=== PATIENT | female | born 1970 | race Caucasian/White ===

== ENCOUNTER 2024-10-25 22:28 | Emergency (ER) | payer SELFPAY ==
[2024-10-25 22:39] VITALS: BMI 29.2
[2024-10-25] MEDS ORDERED: ACETAMINOPHEN INJECTION 100 ML ONE (22:53)
[2024-10-25] MEDS: ACETAMINOPHEN 1000 MG/100 ML BAG IVPB ONE (23:19)
[2024-10-25] MEDS: SODIUM CHLORIDE 1,000 ML IV STA (23:19)
[2024-10-25 23:37] LABS: ABSOLUTE IMMATURE GRANULOCYTES 0.03 x10^3/uL (0.0-0.031); BASOPHILS # 0.04 x10^3/uL (0.01-0.08); EOSINOPHIL % 2.6 % (0.7-5.8); EOSINOPHILS # 0.21 x10^3/uL (0.04-0.36); HEMATOCRIT 41.8 % (34.1-44.9); HEMOGLOBIN 14.5 g/dL (11.2-15.7); MCHC 34.7 g/dl (32.2-35.5); MEAN CELL VOLUME 92.1 fl (79.4-94.8); MEAN PLT VOLUME 9.8 fl (9.4-12.3); MONOCYTE # 0.54 x10^3/uL (0.24-0.86); MONOCYTE % 6.6 % (4.7-12.5); PLATELET COUNT 257 x10^3/uL (182-369); RDW 12.5 % (12.3-16.6)
[2024-10-25 23:48] LABS: INR 0.94 (0.83-1.09); PROTHROMBIN TIME (PATIENT) 10.3 SEC (9.7-13.0)
[2024-10-25] MEDS ORDERED: DICYCLOMINE HCL 10 MG CAPSULE ONE (23:54)
[2024-10-25] MEDS ORDERED: FAMOTIDINE 20 MG/50 ML IVPB 20 MG/50 ML MG IVPB ONE (23:54)
[2024-10-25] MEDS ORDERED: MAG HYDROX/AL HYDROX/SIMETH 30 ML UNIT-DOSE CUP ONE (23:54)
[2024-10-26] MEDS: DICYCLOMINE HCL 10 MG CAPSULE PO ONE (00:19)
[2024-10-26] MEDS: MAG HYDROX/AL HYDROX/SIMETH 30 ML UNIT-DOSE CUP PO ONE (00:19)
[2024-10-26] MEDS: ACETAMINOPHEN 325 MG TABLET (FP) PO ONE (00:20)
[2024-10-26 00:23] LABS: ACTIVATED PTT 22.2 SECONDS (25.2-36.5)
[2024-10-26 00:25] LABS: POTASSIUM 3.8 mmol/L (3.5-5.1)
[2024-10-26 00:27] LABS: CALCIUM 9.3 mg/dL (8.5-10.1)
[2024-10-26 00:28] LABS: BLOOD UREA NITROGEN 16.4 mg/dL (7-18); MAGNESIUM 2.3 mg/dL (1.8-2.4)
[2024-10-26 00:31] LABS: CREATININE 0.8 mg/dL (0.55-1.3)
[2024-10-26 00:33] LABS: BILIRUBIN,TOTAL 0.3 mg/dL (0.2-1)
[2024-10-26 00:36] LABS: N-TERMINAL BNP 18.9 pg/ml (5-125)
[2024-10-26 01:01] VITALS: BP 142/102; PULSE 94; RESP 18; TEMP 97.6
[2024-10-26] MEDS: FAMOTIDINE 20 MG/50 ML IVPB 20 MG/50 ML MG IVPB ONE (01:02)
== END 2024-10-26 03:39 | disposition home or self-care (01) ==
LOC: JER 22:28 → EDBD 22:28 → JER 10-26 03:39
PROC: 3E033GC Introduction of Other Therapeutic Substance into Peripheral Vein, Percutaneous Approach (ICD-10-PCS; principal; 2024-10-25)
PROC: 3E033NZ Introduction of Analgesics, Hypnotics, Sedatives into Peripheral Vein, Percutaneous Approach (ICD-10-PCS; 2024-10-25)
DX: R07.2 Precordial pain (principal); R05.9 Cough, unspecified; R11.2 Nausea with vomiting, unspecified
CPT/HCPCS: 36415; 71045-TC-FY; 80053; 83690; 83735; 83880; 84484; 85025; 85610; 85730; 86850; 86900; 86901; 93005; 93010; 99285-25